=== PATIENT | female | born 1950 | race African-American/Black ===

== ENCOUNTER → 2016-09-30 | Outpatient (CLI) | payer BC ==
[2015-05-21 15:10] VITALS: BP 147/82
[~2016-09-30] MED LIST: ALLO300T PO; ATEN25TA PO; ATEN50TA PO; CHOL2000 PO; LOSA1TAB16 PO; LOSA25TA4 PO; MELO-150 PO; MULT1TAB52 PO; TRAM50TA PO
--- NOTE | 2016-10-01 09:10 | KCIC ---
Bilateral digital screening mammograms with CAD: HISTORY COMPARISON Comparison is made to previous studies dated 09/21/2015 and 09/16/2014. FINDINGS Breast density category B. The skin and nipples show no abnormalities. No abnormal lymph nodes are seen in the axilla. The breast parenchyma shows scattered fibroglandular density. There is a small parenchymal density anterior centrally in the right breast on oblique view which is unchanged. There are no new dominant masses, suspicious calcifications or architectural distortions. Benign appearing calcifications are present IMPRESSION No evidence of malignancy. Recommend routine annual mammographic screening. This study was interpreted with the benefit of Computerized Aided Detection (CAD). Mammography is not 100% sensitive in detecting breast cancer. Therefore, a self breast exam and a clinical breast exam are very important. A negative mammogram does not negate a clinically suspicious finding and should not result in a delay in biopsying a clinically suspicious abnormality. BI-RADS category 2. Benign. This patient's information has been entered into a reminder system for the patient to be notified with the results of this examination and a target date for her next mammograms. Electronically signed by: Chen Camp MD (Oct 01, 2016 09:08:17)
== END | disposition home or self-care (01) ==
LOC: KCIC MAMMO 16:34
PROVIDERS: ATTEND Internal Medicine
DX: Z12.31 Encounter for screening mammogram for malignant neoplasm of breast (principal)
CPT/HCPCS: G0202; 77067

== ENCOUNTER 2016-12-29 14:18 | Inpatient (IN) | payer BC ==
[~2016-12-29] VITALS: Ht 165.1 cm; Wt 89.9 kg
[~2016-12-29 14:18] MED LIST changes: -MELO-150 PO; +MELO15TA23 PO
[2016-12-29] MEDS ORDERED: fentaNYL PF VIAL 100 MCG/2 ML VIAL IV PRN (14:45)
[2016-12-29] MEDS ORDERED: ASPIRIN 325 MG TABLET PO ONE (14:45)
[2016-12-29] MEDS ORDERED: NITROGLYCERIN SUBLINGUAL 0.4 MG BOTTLE OF 25. SL PRN ×2 (14:45→17:45)
[2016-12-29 14:52] LABS: BASO % 1 % (0-3); EOS % 9 % (0-3); HEMATOCRIT 35.5 % (36.0-47.0); HEMOGLOBIN 12.1 g/dL (12.0-15.5); LYMPH # 1.5 x10^3/uL (1.0-4.8); LYMPH % 31 % (24-48); MEAN CORPUSCULAR HEMOGLOBIN 29 pg (25-35); MEAN CORPUSCULAR HGB CONC 34 g/dL (31-37); MEAN CORPUSCULAR VOLUME 84 fL (79-100); MONO % 6 % (0-9); NEUT % 54 % (31-73); PLATELET COUNT 339 x10^3/uL (140-400); RED BLOOD COUNT 4.23 x10^6/uL (3.50-5.40); RED CELL DISTRIBUTION WIDTH 13.8 % (11.5-14.5); WHITE BLOOD COUNT 4.7 x10^3/uL (4.0-11.0)
--- NOTE | 2016-12-29 14:58 | EKG ---
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
[2016-12-29 15:00] LABS: CALCIUM 8.8 mg/dL (8.5-10.1); GFR 66.7; POTASSIUM 3.7 mmol/L (3.5-5.1)
--- NOTE | 2016-12-29 15:03 | RAD ---
Indication chest pain. A single view of the chest was obtained. Comparison is made to an examination 05/21/2015. There is unchanged mild cardiomegaly. There is no congestive heart failure. A focal infiltrate is not seen. Significant pleural fluid is not present. There is no pneumothorax. Overall a significant change in the appearance of the chest is not seen. IMPRESSION: No acute or focal process. No significant change
[2016-12-29 15:05] LABS: ALBUMIN 3.8 g/dL (3.4-5.0); DIRECT BILIRUBIN 0.1 mg/dL (0.0-0.2); TOTAL BILIRUBIN 0.3 mg/dL (0.2-1.0); TOTAL PROTEIN 7.3 g/dL (6.4-8.2)
--- NOTE | 2016-12-29 16:20 | ED.ADGEN ---
Past Medical History Past Medical History: Arthritis, Hypertension Additional Past Medical Histor: GOUT, SPINAL STENOSIS, CHRONIC BACK PAIN, ENLARGED HEART Past Surgical History: Cholecystectomy, Hysterectomy Additional Past Surgical Histo: BACK SURGERY, BREAST BIOPSY, Alcohol Use: None Drug Use: None Adult General Chief Complaint Chief Complaint: CHEST PAIN HPI HPI Patient is a 66 year old woman, history of hypertension, "enlarged heart", arthritis, gout, who presents to the emergency department with a three-day history of chest pain. Patient states the pain is sharp and pressure-like, located in the anterior portion of her chest was tender to palpation, and radiating through to her back. She states that the pain is worse with motion, denies any nausea or vomiting, any other radiation of the pain, any weakness, numbness, tingling, headache, fevers or chills, no swelling of the extremities. States that she will sometimes have numbness in her arm as well, states she's had this issue previously, and was told that it was due to her cervical radiculopathy. Denies any recent travel or surgery, history of DVT or PE in herself or family members, denies any family history of cardiac disease and she is aware of. Patient is a previously received a stress test or catheterization. States pain is currently a 7 out of 10, located in the anterior portion of her chest as stated, with mild shortness of breath. Patient states she came to the ED today because of the persistence of symptoms, the development of shortness of breath. Review of Systems Review of Systems Constitutional: Denies fever or chills. [] Eyes: Denies change in visual acuity. [] HENT: Denies nasal congestion or sore throat. [] Respiratory: Denies cough or shortness of breath. [] Cardiovascular: Denies chest pain or edema. [] GI: Denies abdominal pain, nausea, vomiting, bloody stools or diarrhea. [] : Denies dysuria. [] Musculoskeletal: Denies back pain or joint pain. [] Integument: Denies rash. [] Neurologic: Denies headache, focal weakness or sensory changes. [] Endocrine: Denies polyuria or polydipsia. [] Lymphatic: Denies swollen glands. [] Psychiatric: Denies depression or anxiety. [] Current Medications Current Medications Current Medications Medications (Trade) Dose Ordered Sig/Leah Start Time Stop Time Status Last Admin Dose Admin Aspirin (S[facility] [employer] Aspirin) 325 mg 1X ONCE 12/29/16 14:45 12/29/16 14:47 DC 12/29/16 16:45 325 MG Fentanyl Citrate (Fentanyl 2ml Vial) 25 mcg PRN Q15MIN PRN 12/29/16 14:45 12/30/16 14:44 12/29/16 16:44 25 MCG Iohexol (Omnipaque 300 Mg/ml) 75 ml 1X ONCE 12/29/16 17:00 12/29/16 17:01 DC 12/29/16 18:30 75 ML Nitroglycerin (Nitrostat) 0.4 mg PRN Q5MIN PRN 12/29/16 14:45 12/29/16 17:51 DC 12/29/16 16:45 0.4 MG Allergies Allergies Allergies Coded Allergies Type Severity Reaction Last Updated Verified Sulfa (Sulfonamide Antibiotics) Allergy Intermediate HIVES 10/10/14 Yes codeine Allergy Intermediate HIVES 10/10/14 Yes Physical Exam Physical Exam Constitutional: Well developed, well nourished, no acute distress, non-toxic appearance. [] HENT: Normocephalic, atraumatic, bilateral external ears normal, oropharynx moist, no oral exudates, nose normal. [] Eyes: PERRLA, EOMI, conjunctiva normal, no discharge. [] Neck: Normal range of motion, no tenderness, supple, no stridor. [] Cardiovascular:Heart rate regular rhythm, no murmur, S1, S2, no rubs or gallops. Patient with chest tenderness in the anterior portion of her chest, but does not reproduce symptoms. [] Lungs & Thorax: Bilateral breath sounds clear to auscultation, no wheezing, rhonchi, rales. No chest wall crepitus. Patient with tenderness as stated. [] Abdomen: Bowel sounds normal, soft, no tenderness, no masses, no pulsatile masses. [] Skin: Warm, dry, no erythema, no rash. [] Back: No midline or paraspinal tenderness, unable to reproduce symptoms with palpation no CVA tenderness. [] Extremities: No tenderness, no cyanosis, no clubbing, ROM intact, no edema, equal pulses in all extremities. [] Neurologic: Alert and oriented X 3, normal motor function, normal sensory function, no focal deficits noted. [] Psychologic: Affect normal, judgement normal, mood normal. [] Current Patient Data Vital Signs Vital Signs Date Time Temp Pulse Resp B/P (MAP) Pulse Ox O2 Delivery O2 Flow Rate FiO2 12/29/16 17:25 58 19 152/75 (100) 98 Room Air 12/29/16 14:20 97.8 97.8 Lab Values Laboratory Tests Test 12/29/16 14:40 White Blood Count 4.7 x10^3/uL (4.0-11.0) Red Blood Count 4.23 x10^6/uL (3.50-5.40) Hemoglobin 12.1 g/dL (12.0-15.5) Hematocrit 35.5 % (36.0-47.0) L Mean Corpuscular Volume 84 fL (79-100) Mean Corpuscular Hemoglobin 29 pg (25-35) Mean Corpuscular Hemoglobin Concent 34 g/dL (31-37) Red Cell Distribution Width 13.8 % (11.5-14.5) Platelet Count 339 x10^3/uL (140-400) Neutrophils (%) (Auto) 54 % (31-73) Lymphocytes (%) (Auto) 31 % (24-48) Monocytes (%) (Auto) 6 % (0-9) Eosinophils (%) (Auto) 9 % (0-3) H Basophils (%) (Auto) 1 % (0-3) Neutrophils # (Auto) 2.5 x10^3uL (1.8-7.7) Lymphocytes # (Auto) 1.5 x10^3/uL (1.0-4.8) Monocytes # (Auto) 0.3 x10^3/uL (0.0-1.1) Eosinophils # (Auto) 0.4 x10^3/uL (0.0-0.7) Basophils # (Auto) 0.0 x10^3/uL (0.0-0.2) D-Dimer (Radha) 0.47 ug/mlFEU (0.00-0.50) Sodium Level 144 mmol/L (136-145) Potassium Level 3.7 mmol/L (3.5-5.1) Chloride Level 107 mmol/L (98-107) Carbon Dioxide Level 27 mmol/L (21-32) Anion Gap 10 (6-14) Blood Urea Nitrogen 14 mg/dL (7-20) Creatinine 1.0 mg/dL (0.6-1.0) Estimated GFR (Cockcroft-Gault) 66.7 Glucose Level 128 mg/dL (70-99) H Calcium Level 8.8 mg/dL (8.5-10.1) Total Bilirubin 0.3 mg/dL (0.2-1.0) Direct Bilirubin 0.1 mg/dL (0.0-0.2) Aspartate Amino Transferase (AST) 30 U/L (15-37) Alanine Aminotransferase (ALT) 36 U/L (14-59) Alkaline Phosphatase 54 U/L (46-116) Troponin I Quantitative < 0.017 ng/mL (0.000-0.055) CI-Lef-T-Type Natriuretic Peptide 26 pg/mL (0-124) Total Protein 7.3 g/dL (6.4-8.2) Albumin 3.8 g/dL (3.4-5.0) Laboratory Tests 12/29/16 14:40 Laboratory Tests 12/29/16 14:40 EKG EKG EC: Sinus rhythm, heart rate 78 beats minute, left axis deviation, QTC of 467, NH 14, QRS of 86, mild baseline artifact noted, no ST elevations or depressions, aside from left axis deviation, no other abnormalities identified. Abnormal ECG. As interpreted by me. Radiology/Procedures Radiology/Procedures PROCEDURE: CT CHEST W/CONTRAST CT chest with contrast History:Chest pain radiating to the back for 3 days.. Technique: After bolus of intravenous contrast, CT imaging was performed of the chest. Multiplanar reconstructions were obtained. Exposure: One or more of the following individualized dose reduction techniques were utilized for this examination: 1. Automated exposure control 2. Adjustment of the mA and/or kV according to patient size 3. Use of iterative reconstruction technique. Findings: Thoracic aorta: No evidence of an aneurysm or dissection. Great vessel origins:Patent Pulmonary arteries:Limited visualization due to technique, but no obvious large central embolism. Thyroid gland: No definite abnormality Lymph nodes:No significant enlargement Heart: No significant pericadial effusion. Pleural spaces: No significant effusion Lungs: No dominant airspace consolidation or large mass. Trachea and central airways: Patent Bones: Degenerative spondylosis. Upper abdomen: Limited slices were obtained through the upper abdomen. Multiple low-density lesions identified of both kidneys, the larger of which measure water density, compatible with cysts. Mild pancreatic duct dilatation. Impression: No evidence of acute abnormality in the chest. Electronically signed by: Dominic Simpson MD (12/29/2016 6:43 PM) [facility] DICTATED and SIGNED BY: DOMINIC SIMPSON MD DATE: 12/29/16 1062 [][facility] [address] [place] [address] IMAGING REPORT Signed PATIENT: JACQUES CHURCH ACCOUNT: [id number] : 1950 LOCATION: ER AGE: 66 SEX: F EXAM STATUS: PRE ER ORD. PHYSICIAN: KAROLINE MELENDEZ DO REASON: CP PROCEDURE: PORTABLE CHEST 1V Indication chest pain. A single view of the chest was obtained. Comparison is made to an examination 05/21/2015. There is unchanged mild cardiomegaly. There is no congestive heart failure. A focal infiltrate is not seen. Significant pleural fluid is not present. There is no pneumothorax. Overall a significant change in the appearance of the chest is not seen. IMPRESSION: No acute or focal process. No significant change DICTATED and SIGNED BY: RANI NELSON MD DATE: 12/29/16 1458 CC: KAROLINE MELENDEZ DO; JENNY MAYS MD ~ Course & Med Decision Making Course & Med Decision Making Pertinent Labs and Imaging studies reviewed. (See chart for details) Patient is agreeable to receiving laboratory studies, and imaging in the ED. Patient ordered fentanyl and nitroglycerin along with aspirin. Patient's pain improved with a menstruation medication. Laboratory studies did not reveal any acutely concerning findings, initial troponin was negative. Chest x-ray was unremarkable. However, based on the length of the patient's symptoms, and the radiation of pain, concern for possible occult abnormality of the great vessels. I did discuss this with patient, she is agreeable to receiving CT angiogram of the chest to further elucidation of her symptoms. Patient waiting to receive CT at time of sign out to Dr. Juanita Og. --- Assumed care of the patient from Dr. Melendez. She remained in stable condition. Unfortunately RN unable to obtain adequate IV access for CTA chest. She has intact bilateral radial pulses. She remains well-appearing after evaluation here. Discussed with computer engineering technician and will obtain CT of the chest with contrast although not angiogram. This showed no acute abnormality. Admittedly limited for evaluation for aortic dissection, so I discussed with the patient. She is agreeable to admission for further cardiac workup including possible advanced imaging. Dr. Mays agrees to accept for admission inpatient status with cardiology consult to Dr. Osorio & serial cardiac enzymes. The patient is being admitted in stable condition. Juanita Ferguson MD Dragon Disclaimer Dragon Disclaimer This electronic medical record was generated, in whole or in part, using a voice recognition dictation system. Departure Disposition: ADMITTED INPATIENT Admitting Physician: Jenny Mays Condition: STABLE KAROLINE MELENDEZ DO Dec 29, 2016 16:20 JUANITA FERGUSON MD Dec 30, 2016 00:23
[2016-12-29] MEDS ORDERED: IOHEXOL 300 MG/ML 75 ML VIAL IV ONE (17:00)
[2016-12-29] MEDS ORDERED: ONDANSETRON PF 4 MG/2 ML VIAL. IV PRN (17:45)
[2016-12-29] MEDS ORDERED: MORPHINE SULFATE 4 MG/ML DISP.SYRIN. IV PRN (17:45)
[2016-12-29] MEDS ORDERED: ACETAMINOPHEN 325 MG TABLET. PO PRN (17:45)
--- NOTE | 2016-12-29 18:46 | RAD ---
CT chest with contrast History:Chest pain radiating to the back for 3 days.. Technique: After bolus of intravenous contrast, CT imaging was performed of the chest. Multiplanar reconstructions were obtained. Exposure: One or more of the following individualized dose reduction techniques were utilized for this examination: 1. Automated exposure control 2. Adjustment of the mA and/or kV according to patient size 3. Use of iterative reconstruction technique. Findings: Thoracic aorta: No evidence of an aneurysm or dissection. Great vessel origins:Patent Pulmonary arteries:Limited visualization due to technique, but no obvious large central embolism. Thyroid gland: No definite abnormality Lymph nodes:No significant enlargement Heart: No significant pericadial effusion. Pleural spaces: No significant effusion Lungs: No dominant airspace consolidation or large mass. Trachea and central airways: Patent Bones: Degenerative spondylosis. Upper abdomen: Limited slices were obtained through the upper abdomen. Multiple low-density lesions identified of both kidneys, the larger of which measure water density, compatible with cysts. Mild pancreatic duct dilatation. Impression: No evidence of acute abnormality in the chest. Electronically signed by: Dominic Simpson MD (12/29/2016 6:43 PM) [place] [id number]
[2016-12-29 21:20] VITALS: BP 142/84
[2016-12-29] MEDS ORDERED: METO100T5 PO (21:40)
[2016-12-29] MEDS ORDERED: ASPI-482 PO (21:40)
[2016-12-29] MEDS ORDERED: LOSA25TA4 PO (21:40)
[2016-12-29 23:40] VITALS: BP 157/64
--- NOTE | 2016-12-30 01:34 | ACF ---
Admission Forms Criteria CARDIOLOGY GRG Clinical Indications for Admission to Inpatient Care ( Place 'X' for any and all applicable criteria): Hospital admission is needed for appropriate care of the patient because of ANY ONE of the following (1): [ ] I. Hemodynamic instability as indicated by ALL of the following (1)(2)(3) (4)(5) [ ]a) Vital signs or other findings not as expected for chronic patient condition or baseline [ ]b) Instability indicated by ANY ONE of the following: [ ]i) Hypotension [ ]ii) Symptomatic Tachycardia unresponsive to treatment ( e.g., analgesia, fluids, sedation as indicated) [ ]iii) Inadequate perfusion indicated by ANY ONE of the following: [ ] 1) Lactic acidosis (> 2 mmol/L) [ ] 2) New abnormal capillary refill (> 3 seconds) [ ] 3) Reduced urine output [ ] 4) New altered mental status [ ]iv) Orthostatic vital sign changes unresponsive to treatment (e.g., fluids) [ ]v) IV inotropic or vasopressor medication required to maintain adequate blood pressure or perfusion [ ] II. Severe heart failure as indicated by ANY ONE of the following(17)(18) [ ]a) Respiratory distress [ ]b) Hypotension [ ]c) Anasarca (refractory to outpatient therapy) [ ]d) Cardiac arrhythmias of immediate concern [ ]e) Myocardial ischemia [ ] III. Cardiac arrhythmias or findings of immediate concern indicated by ANY ONE of the following (19)(20): [ ] a) Heart rhythms that are inherently dangerous or unstable indicated by ANY ONE of the following (21)(22)(23): [ ] i) Resuscitated ventricular fibrillation or cardiac arrest [ ] ii) Ventricular escape rhythm [ ] iii) Sustained ventricular tachycardia (30 seconds or more of ventricular rhythm at greater than 100 beats per minute) [ ] iv) Nonsustained ventricular tachycardia and ANY ONE of the following: [ ] 1) Suspected cardiac ischemia as cause or consequence of ventricular tachycardia [ ] 2) In setting of acute myocarditis [ ] b) Unstable cardiac conduction defects indicated by ANY ONE of the following(23)(24)(25) [ ] i) Type II second-degree atrioventricular block [ ]ii) Third-degree atrioventricular block [ ]iii) New-onset left bundle branch block with suspected myocardial ischemia [ ]c) Any heart rhythm and ANY ONE of the following (21)(22)(26)(27) (28) [ ] i) Continuous long-term ECG monitoring needed (e.g., initiation of drug requiring monitoring for more than 24 hours) [ ] ii) Patient has automatic implanted cardioverter defibrillator that is repeatedly firing, malfunctioning, or in need of immediate adjustment of settings beyond the scope of ambulatory or observation care [ ]d) Heart rhythms of concern due to ANY ONE of the following: [ ] i) Hypotension [ ] ii) Respiratory distress [ ] iii) Association with other significant symptoms (e.g., bradycardia with syncope or ongoing dizziness, supraventricular tachycardia with chest pain (14)(15)(17) [ ] IV. Monitoring for cardiac contusion beyond the scope of observation care needed [A](30)(31)(32) [ ] V. Surgical or device complication (e.g., valve replacement complication , pacemaker dysfunction) (35)(41)(44)(45)(46) [ ] . Inpatient palliative care needed. [B](49) Also use Inpatient Palliative Care Criteria [ ] VII. Nonbacterial thrombotic (marantic) endocarditis (36)(43)(47)(48) [ X] VIII. Cardiology condition, symptom, or finding for which emergency and observation care has failed or are not considered appropriate. [ ] IX. Acute valvular disease requiring inpatient as indicated by ANY ONE of the following (41) [ ]a) Acute valvular regurgitation (42) [ ]b) Noninfectious valvulitis (43) [ ]c) Obstructive valve thrombosis [ ]d) Paravalvular leak [ ]e) Other significant valvular disorder remaining after emergency or observation level of care (as appropriate) [ ]X. Pericardial disease requiring inpatient treatment as indicated by ANY ONE of the following (33)(34)(35)(36)(37) [ ]a) Suspected tamponade (38)(39)(40) [ ]b) Hemopericardium [ ]c) Other significant pericardial disorder remaining after emergency or observation level of care (as appropriate) [ ] XI. Cardiac ischemia beyond scope of emergency and observation care. [ ] XII. Hypertension requiring inpatient treatment as indicated by ANY ONE of the following (6)(7)(8) [ ]a) SBP greater than 220 mm Hg or DBP greater than 120 mmHg despite treatment [ ]b) SBP greater than 140 mm Hg or DBP greater than 100 mm Hg with evidence of acute end organ damage as indicated by ANY ONE of the following [ ] i) Encephalopathy [ ] ii) Acute renal failure as indicated by new onset of ANY ONE of the following (9)(10)(11)(12)(13) [ ]1) 3-fold rise in serum creatinine from baseline [ ]2) Serum creatinine greater than 4 mg/dL ( 354 micromoles/L) with acute rise greater than 0.5 mg/dL (44.2 micromoles/L) [ ]3) Reduction of more than 75% in estimated glomerular filtration rate from baseline [ ]4) Estimated glomerular filtration rate less than 35 mL/min/1.73m2 (0.59 mL/sec/1.73m2) in child up to 18 years of age [ ]5) Cessation of urine output indicated by ALL of the following [ ]A. Adequate volume status [ ]B. Inadequate urine output as indicated by ANY ONE of the following [ ]a. Urine output less than 0.3 mL/kg/hr for 24 hours [ ]b. Anuria (urine output less than 0.1 mL/kg/hr) for 12 hours [ ] iii) Aortic dissection [ ] iv) Myocardial Ischemia [ ] v) Left ventricular heart failure [ ]vi) Retinal Hemorrhage [ ]vii) Other significant finding [ ]c) Hypertension in child requiring inpatient treatment as indicated by ALL of the following(14)(15)(16) [ ] i) Outpatient treatment not effective, not available, or not appropriate [ ]ii) SBP or DBP greater than 95th percentile for age [ ]iii) Evidence of acute end organ damage as indicated by ANY ONE of the following [ ]1) Altered mental status [ ]2) Acute renal failure as indicated by new onset of ANY ONE of the following(9)(10)(11)(12)(13) [ ]A. 3-fold rise in serum creatinine from baseline [ ]B. Serum creatinine greater than 4 mg/dL (354 micromoles/L) with acute rise greater than 0.5 mg/dL (44.2 micromoles/L) [ ]C. Reduction of more than 75% in estimated glomerular filtration rate from baseline [ ]D. Estimated glomerular filtration rate less than 35 mL/min/1.73m2 (0.59 mL/sec/1.73m2) in child up to 18 years of age [ ]E. Cessation of urine output indicated by ALL of the following [ ]a. Adequate volume status [ ]b. Inadequate urine output as indicated by ANY ONE of the following [ ]i) Urine output less than 0.3 mL/kg/hr for 24 hours [ ]ii) Anuria ( urine output less than 0.1 mL/kg/hr) for 12 hours [ ]3) Severe headache [ ]4) Visual disturbance [ ]5) Retinal hemorrhage [ ]6) Other significant finding [ ]XIII. Complications of transplanted heart indicated by ANY ONE of the following(61): [ ]a) Acute graft rejection requiring inpatient management (eg, intravenous immunosuppression)(62)(63) [ ]b) Acute graft heart failure indicated by ANY ONE of the following(64): [ ]i) Hemodynamic instability [ ]ii) Cardiac arrhythmias of immediate concern [ ]iii) Pulmonary edema that is very severe (eg, mechanical ventilation needed, imminent or likely, need for 100% oxygen to keep oxygen saturation above 90%) [ ]iv) Pulmonary edema that is persistent as indicated by ALL of the following: [ ]1) New need for oxygen therapy to keep oxygen saturation above 90% (or increased FiO2 need from baseline) [ ]2) Has not improved sufficiently with emergency department or observation care IV diuretics or other heart failure treatments[E] [ ]v) Altered mental status that is severe or persistent [ ]vi) Increased creatinine (new on laboratory test) with reduction of more than 50% in estimated glomerular filtration rate from baseline [ ]vii) Progressively (ongoing) rising creatinine (known from past laboratory test) with reduction of more than 25% in estimated glomerular filtration rate from baseline [ ]viii) Acute renal failure [ ]ix) Acute peripheral ischemia (eg, examination shows pulseless, cool, mottled, or cyanotic extremity) [ ]x) Pulmonary artery catheter monitoring needed [ ]xi) Other sign or symptom of heart failure requiring inpatient treatment (ie, too severe or not responsive to outpatient and observation care treatment) [ ]c) Infection requiring inpatient management (eg, Hemodynamic instability, need for intravenous antimicrobial treatment)(66)(67)(68)(69)(70) [ ]d) Cardiac allograft vasculopathy requiring inpatient management ( eg evidence of cardiac ischemia)(71) [ ]e) Other complication of transplanted heart (eg, stroke, severe pulmonary hypertension, severe valvular dysfunction) requiring inpatient management(72) The original [facility] content created by [facility] has been revised. The portions of the content which have been revised are identified through the use of italic text or in bold, and [facility] has neither reviewed nor approved the modified material. All other unmodified content is copyright [facility]. Please see references footnoted in the original [facility] edition 2016 Admission Criteria Met?: Yes BRIDGETT GARCIA Dec 30, 2016 01:34
[2016-12-30 03:56] VITALS: BP 143/60
[2016-12-30 05:55] LABS: CHOLESTEROL/HDL RATIO 2.6
[2016-12-30 07:00] VITALS: BP_SYST 123; BP_DIAS 56; BP_DIAS 72
--- NOTE | 2016-12-30 07:38 | EKG ---
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
[2016-12-30 08:15] VITALS: BP 123/72
[2016-12-30] MEDS ORDERED: traMADol 50 MG TABLET PO PRN (09:15)
--- NOTE | 2016-12-30 09:21 | PDOC1 ---
History and Physical Date of Admission Date of Admission DATE: 12/30/16 TIME: 09:20 History of Present Illness History of Present Illness 4 days nonspecific CP. no new sxs or hx of cad Past Medical History Cardiovascular: HTN Pulmonary: No pertinent hx CENTRAL NERVOUS SYSTEM: Other GI: GERD, Other Heme/Onc: No pertinent hx Hepatobiliary: No pertinent hx Psych: No pertinent hx Musculoskeletal: Osteoarthritis Rheumatologic: Gout Infectious disease: No pertinent hx Renal/: No pertinent hx Endocrine: No pertinent hx Past Surgical History Past Surgical History: Cholecystectomy, Other Social History ALCOHOL: none Drugs: None Current Problem List Problem List Problems Medical Problems: (1) Chest pain Status: Acute Problems: Current Medications Current Medications Current Medications Nitroglycerin (Nitrostat) 0.4 mg PRN Q5MIN PRN SL CP RATING > 1/10 Last administered on 12/29/16 16:45; Start 12/29/16 at 14:45; Stop 12/29/16 at 17:51 ; Status DC Fentanyl Citrate (Fentanyl 2ml Vial) 25 mcg PRN Q15MIN PRN IV PAIN GREATER THAN 3/10 Last administered on 12/29/16 16:44; Start 12/29/16 at 14:45; Stop at 14:44 Aspirin (Victorina Aspirin) 325 mg 1X ONCE PO Last administered on 12/29/16 16:45 ; Start 12/29/16 at 14:45; Stop 12/29/16 at 14:47; Status DC Iohexol (Omnipaque 300 Mg/ml) 75 ml 1X ONCE IV Last administered on 12/29/16 18:30; Start 12/29/16 at 17:00; Stop 12/29/16 at 17:01; Status DC Ondansetron HCl (Zofran) 4 mg PRN Q8HRS PRN IV NAUSEA/VOMITING; Start 12/29/16 at 17:45; Stop 12/30/16 at 17:44 Morphine Sulfate 4 mg PRN Q2HR PRN IV PAIN Last administered on 12/29/16 21:56 ; Start 12/29/16 at 17:45; Stop 12/30/16 at 17:44 Acetaminophen (Tylenol) 650 mg PRN Q4HRS PRN PO FEVER; Start 12/29/16 at 17:45 ; Stop 12/30/16 at 17:44 Nitroglycerin (Nitrostat) 0.4 mg PRN Q5MIN PRN SL CHEST PAIN; Start 12/29/16 at 17:45; Stop 12/30/16 at 17:44 Aspirin (Ecotrin) 81 mg DAILY PO ; Start 12/30/16 at 09:30 Losartan Potassium (Cozaar) 12.5 mg HS PO ; Start 12/30/16 at 21:00 Metoprolol Succinate (Toprol Xl) 100 mg HS PO ; Start 12/30/16 at 21:00 Tramadol HCl (Ultram) 50 mg PRN Q6HRS PRN PO PAIN; Start 12/30/16 at 09:15 Active Scripts Active Reported Losartan Potassium 25 Mg Tablet 12.5 Mg PO HS Toprol Xl (Metoprolol Succinate) 100 Mg Tab.er.24h 1 Tab PO HS Aspir 81 (Aspirin) 81 Mg Tablet.dr 1 Tab PO DAILY Tramadol Hcl 50 Mg Tablet 1 Tab PO PRN Q6HRS PRN Multivitamins (Multivitamin) 1 Each Tablet 1 Tab PO DAILY Vitamin D (Cholecalciferol (Vitamin D3)) 2,000 Unit Capsule 1 Cap PO DAILY Allergies Allergies: Coded Allergies: Sulfa (Sulfonamide Antibiotics) (Verified Allergy, Intermediate, HIVES, 10/10/14) codeine (Verified Allergy, Intermediate, HIVES, 10/10/14) Vitals Vitals Vital Signs Date Time Temp Pulse Resp B/P (MAP) Pulse Ox O2 Delivery O2 Flow Rate FiO2 12/30/16 08:15 98.2 60 16 123/72 (89) 98 Room Air 98.2 Labs Labs Laboratory Tests Test 12/29/16 14:40 12/29/16 23:40 12/30/16 04:45 White Blood Count 4.7 x10^3/uL (4.0-11.0) Red Blood Count 4.23 x10^6/uL (3.50-5.40) Hemoglobin 12.1 g/dL (12.0-15.5) Hematocrit 35.5 % (36.0-47.0) Mean Corpuscular Volume 84 fL (79-100) Mean Corpuscular Hemoglobin 29 pg (25-35) Mean Corpuscular Hemoglobin Concent 34 g/dL (31-37) Red Cell Distribution Width 13.8 % (11.5-14.5) Platelet Count 339 x10^3/uL (140-400) Neutrophils (%) (Auto) 54 % (31-73) Lymphocytes (%) (Auto) 31 % (24-48) Monocytes (%) (Auto) 6 % (0-9) Eosinophils (%) (Auto) 9 % (0-3) Basophils (%) (Auto) 1 % (0-3) Neutrophils # (Auto) 2.5 x10^3uL (1.8-7.7) Lymphocytes # (Auto) 1.5 x10^3/uL (1.0-4.8) Monocytes # (Auto) 0.3 x10^3/uL (0.0-1.1) Eosinophils # (Auto) 0.4 x10^3/uL (0.0-0.7) Basophils # (Auto) 0.0 x10^3/uL (0.0-0.2) D-Dimer (Radha) 0.47 ug/mlFEU (0.00-0.50) Sodium Level 144 mmol/L (136-145) Potassium Level 3.7 mmol/L (3.5-5.1) Chloride Level 107 mmol/L (98-107) Carbon Dioxide Level 27 mmol/L (21-32) Anion Gap 10 (6-14) Blood Urea Nitrogen 14 mg/dL (7-20) Creatinine 1.0 mg/dL (0.6-1.0) Estimated GFR (Cockcroft-Gault) 66.7 Glucose Level 128 mg/dL (70-99) Calcium Level 8.8 mg/dL (8.5-10.1) Total Bilirubin 0.3 mg/dL (0.2-1.0) Direct Bilirubin 0.1 mg/dL (0.0-0.2) Aspartate Amino Transf (AST/SGOT) 30 U/L (15-37) Alanine Aminotransferase (ALT/SGPT) 36 U/L (14-59) Alkaline Phosphatase 54 U/L (46-116) Troponin I Quantitative < 0.017 ng/mL (0.000-0.055) < 0.017 ng/mL (0.000-0.055) < 0.017 ng/mL (0.000-0.055) YQ-Vbp-W-Type Natriuretic Peptide 26 pg/mL (0-124) Total Protein 7.3 g/dL (6.4-8.2) Albumin 3.8 g/dL (3.4-5.0) Triglycerides Level 108 mg/dL (0-150) Cholesterol Level 175 mg/dL (0-200) LDL Cholesterol, Calculated 86 mg/dL (0-100) VLDL Cholesterol, Calculated 22 mg/dL (0-40) Non-HDL Cholesterol Calculated 108 mg/dL (0-129) HDL Cholesterol 67 mg/dL (40-60) Cholesterol/HDL Ratio 2.6 Laboratory Tests Test 12/29/16 14:40 12/29/16 23:40 12/30/16 04:45 White Blood Count 4.7 x10^3/uL (4.0-11.0) Red Blood Count 4.23 x10^6/uL (3.50-5.40) Hemoglobin 12.1 g/dL (12.0-15.5) Hematocrit 35.5 % (36.0-47.0) Mean Corpuscular Volume 84 fL (79-100) Mean Corpuscular Hemoglobin 29 pg (25-35) Mean Corpuscular Hemoglobin Concent 34 g/dL (31-37) Red Cell Distribution Width 13.8 % (11.5-14.5) Platelet Count 339 x10^3/uL (140-400) Neutrophils (%) (Auto) 54 % (31-73) Lymphocytes (%) (Auto) 31 % (24-48) Monocytes (%) (Auto) 6 % (0-9) Eosinophils (%) (Auto) 9 % (0-3) Basophils (%) (Auto) 1 % (0-3) Neutrophils # (Auto) 2.5 x10^3uL (1.8-7.7) Lymphocytes # (Auto) 1.5 x10^3/uL (1.0-4.8) Monocytes # (Auto) 0.3 x10^3/uL (0.0-1.1) Eosinophils # (Auto) 0.4 x10^3/uL (0.0-0.7) Basophils # (Auto) 0.0 x10^3/uL (0.0-0.2) D-Dimer (Radha) 0.47 ug/mlFEU (0.00-0.50) Sodium Level 144 mmol/L (136-145) Potassium Level 3.7 mmol/L (3.5-5.1) Chloride Level 107 mmol/L (98-107) Carbon Dioxide Level 27 mmol/L (21-32) Anion Gap 10 (6-14) Blood Urea Nitrogen 14 mg/dL (7-20) Creatinine 1.0 mg/dL (0.6-1.0) Estimated GFR (Cockcroft-Gault) 66.7 Glucose Level 128 mg/dL (70-99) Calcium Level 8.8 mg/dL (8.5-10.1) Total Bilirubin 0.3 mg/dL (0.2-1.0) Direct Bilirubin 0.1 mg/dL (0.0-0.2) Aspartate Amino Transf (AST/SGOT) 30 U/L (15-37) Alanine Aminotransferase (ALT/SGPT) 36 U/L (14-59) Alkaline Phosphatase 54 U/L (46-116) Troponin I Quantitative < 0.017 ng/mL (0.000-0.055) < 0.017 ng/mL (0.000-0.055) < 0.017 ng/mL (0.000-0.055) ZX-Ypv-E-Type Natriuretic Peptide 26 pg/mL (0-124) Total Protein 7.3 g/dL (6.4-8.2) Albumin 3.8 g/dL (3.4-5.0) Triglycerides Level 108 mg/dL (0-150) Cholesterol Level 175 mg/dL (0-200) LDL Cholesterol, Calculated 86 mg/dL (0-100) VLDL Cholesterol, Calculated 22 mg/dL (0-40) Non-HDL Cholesterol Calculated 108 mg/dL (0-129) HDL Cholesterol 67 mg/dL (40-60) Cholesterol/HDL Ratio 2.6 VTE Prophylaxis Ordered VTE Prophylaxis Devices: Yes VTE Pharmacological Prophylaxi: No Assessment/Plan Assessment/Plan tender costal cartileges, likely chest wall pain, but will do chem MPI, meds ordered JESUS JAVIER MD Dec 30, 2016 09:21
[2016-12-30] MEDS ORDERED: ASPIRIN ENTERIC COATED 81 MG TABLET.DR. PO SCH (09:30)
[2016-12-30] MEDS ORDERED: REGADENOSON 0.4 MG/5 ML DISP.SYRIN. IV ONE (10:45)
--- NOTE | 2016-12-30 10:53 | PDOC2 ---
SHAKIR GOMEZ LOAN SERVICING OFFICER 12/30/16 1052: CARDIAC CONSULT DATE OF CONSULT Date of Consult DATE: 12/30/16 TIME: 10:39 REASON FOR CONSULT Reason for Consult: Chest pain REFERRING PHYSICIAN Referring Physician: Marty SOURCE Source: Chart review, Patient HISTORY OF PRESENT ILLNESS HISTORY OF PRESENT ILLNESS This is a pleasant 66 yo female admitted for complains of chest pain. Reports of left chest pain in the last 3 days radiating to mid back,. This was sharp but not associated wtih any nausea, SOA, or palpitations. Denies any significant changes to her activity tolerance. She does however has been feeling some times like her food is not going down smoothly in her esophagus and she has had esophageal stricture which required dilatation from about 10 yrs ago. She does have GERD but does not take any reflux medications. Denies any CAD, CHINO, VTE, recent injury or falls but she does have significan shoulder and neck arthritis. She has been treated with NSAIDs and was given recently with tramadol. Verbalized that she was told of steroid shot to her neck but refused to have this done. She is also sinigificant for lumbar stenosis in which she had laminectomy in the past. Presently denies any discomfort. She has HTN and verbalized compliance with her medications. She finally came to the hospital through her convincing. PAST MEDICAL HISTORY Cardiovascular: HTN Pulmonary: Other (mild pulmonary HTN) CENTRAL NERVOUS SYSTEM: Vertigo GI: Diverticulosis, GERD, Other (esophageal stricture) Heme/Onc: No pertinent hx Hepatobiliary: No pertinent hx Musculoskeletal: low back pain, Osteoarthritis Rheumatologic: No pertinent hx Infectious disease: No pertinent hx ENT: Other (cataract) Renal/: No pertinent hx Endocrine: No pertinent hx Dermatology: No pertinent hx PAST SURGICAL HISTORY Past Surgical History: Cataract Removal (OD), Hysterectomy, Other (esophageal dilatation; lumbar laminectomy; right breast biopsy) FAMILY HISTORY Family History noncontributory to CV SOCIAL HISTORY Smoke: No ALCOHOL: none Drugs: None Lives: with Family CURRENT MEDICATIONS CURRENT MEDICATIONS Current Medications Medications (Trade) Dose Ordered Sig/Leah Route PRN Reason Start Time Stop Time Status Last Admin Dose Admin Nitroglycerin (Nitrostat) 0.4 mg PRN Q5MIN PRN SL CP RATING > 1/10 12/29/16 14:45 12/29/16 17:51 DC 12/29/16 16:45 Fentanyl Citrate (Fentanyl 2ml Vial) 25 mcg PRN Q15MIN PRN IV PAIN GREATER THAN 3/10 12/29/16 14:45 12/30/16 14:44 12/29/16 16:44 Aspirin (Victorina Aspirin) 325 mg 1X ONCE PO 12/29/16 14:45 12/29/16 14:47 DC 12/29/16 16:45 Iohexol (Omnipaque 300 Mg/ml) 75 ml 1X ONCE IV 12/29/16 17:00 12/29/16 17:01 DC 12/29/16 18:30 Morphine Sulfate 4 mg PRN Q2HR PRN IV PAIN 12/29/16 17:45 12/30/16 17:44 12/29/16 21:56 ALLERGIES ALLERGIES: Coded Allergies: Sulfa (Sulfonamide Antibiotics) (Verified Allergy, Intermediate, HIVES, 10/10/14) codeine (Verified Allergy, Intermediate, HIVES, 10/10/14) ROS Review of System 14 point ROS evaluated with pertinent positives noted per HPI PHYSICAL EXAM General: Alert, Oriented X3, Cooperative, No acute distress HEENT: Atraumatic, Mucous membr. moist/pink Lungs: Clear to auscultation, Normal air movement Heart: Regular rate (SR), Normal S1, Normal S2, Other (2/6 systolic murmur to LLS border) Abdomen: Soft, No tenderness Extremities: No cyanosis, No edema Skin: No breakdown, No significant lesion Neuro: Normal speech, Sensation intact Psych/Mental Status: Mental status NL, Mood NL MUSCULOSKELETAL: Osteoarthritic changes both hands VITALS VITALS Vital Signs Date Time Temp Pulse Resp B/P (MAP) Pulse Ox O2 Delivery O2 Flow Rate FiO2 12/30/16 08:15 98.2 60 16 123/72 (89) 98 Room Air 98.2 LABS Lab: Laboratory Tests Test 12/29/16 14:40 12/29/16 23:40 12/30/16 04:45 White Blood Count 4.7 x10^3/uL (4.0-11.0) Red Blood Count 4.23 x10^6/uL (3.50-5.40) Hemoglobin 12.1 g/dL (12.0-15.5) Hematocrit 35.5 % (36.0-47.0) Mean Corpuscular Volume 84 fL (79-100) Mean Corpuscular Hemoglobin 29 pg (25-35) Mean Corpuscular Hemoglobin Concent 34 g/dL (31-37) Red Cell Distribution Width 13.8 % (11.5-14.5) Platelet Count 339 x10^3/uL (140-400) Neutrophils (%) (Auto) 54 % (31-73) Lymphocytes (%) (Auto) 31 % (24-48) Monocytes (%) (Auto) 6 % (0-9) Eosinophils (%) (Auto) 9 % (0-3) Basophils (%) (Auto) 1 % (0-3) Neutrophils # (Auto) 2.5 x10^3uL (1.8-7.7) Lymphocytes # (Auto) 1.5 x10^3/uL (1.0-4.8) Monocytes # (Auto) 0.3 x10^3/uL (0.0-1.1) Eosinophils # (Auto) 0.4 x10^3/uL (0.0-0.7) Basophils # (Auto) 0.0 x10^3/uL (0.0-0.2) D-Dimer (Radha) 0.47 ug/mlFEU (0.00-0.50) Sodium Level 144 mmol/L (136-145) Potassium Level 3.7 mmol/L (3.5-5.1) Chloride Level 107 mmol/L (98-107) Carbon Dioxide Level 27 mmol/L (21-32) Anion Gap 10 (6-14) Blood Urea Nitrogen 14 mg/dL (7-20) Creatinine 1.0 mg/dL (0.6-1.0) Estimated GFR (Cockcroft-Gault) 66.7 Glucose Level 128 mg/dL (70-99) Calcium Level 8.8 mg/dL (8.5-10.1) Total Bilirubin 0.3 mg/dL (0.2-1.0) Direct Bilirubin 0.1 mg/dL (0.0-0.2) Aspartate Amino Transf (AST/SGOT) 30 U/L (15-37) Alanine Aminotransferase (ALT/SGPT) 36 U/L (14-59) Alkaline Phosphatase 54 U/L (46-116) Troponin I Quantitative < 0.017 ng/mL (0.000-0.055) < 0.017 ng/mL (0.000-0.055) < 0.017 ng/mL (0.000-0.055) VL-Adx-S-Type Natriuretic Peptide 26 pg/mL (0-124) Total Protein 7.3 g/dL (6.4-8.2) Albumin 3.8 g/dL (3.4-5.0) Triglycerides Level 108 mg/dL (0-150) Cholesterol Level 175 mg/dL (0-200) LDL Cholesterol, Calculated 86 mg/dL (0-100) VLDL Cholesterol, Calculated 22 mg/dL (0-40) Non-HDL Cholesterol Calculated 108 mg/dL (0-129) HDL Cholesterol 67 mg/dL (40-60) Cholesterol/HDL Ratio 2.6 ASSESSMENT/PLAN ASSESSMENT/PLAN 1. Atypical CP: doubt ACS. risk factors noted. Suspect GI vs MSK 2. Hx of /GERDesophageal stricture and dilatation: about 10 yrs ago. notable for intermittent sensation of "food not going down smoothly" 3. OA: cervical and shoulder 4. HTN: controlled 5. Prolonged QTc 487: on tizanidine Recommendations 1. MPI to completely rule out ischemia 2. Will likely need outpt GI to revisit esophageal issues 3. Continue HTN regimen 4. Recommend alternative to tizanidine Problems: BRIANDA BAKER MD 12/30/162051: CARDIAC CONSULT ALLERGIES ALLERGIES: Coded Allergies: Sulfa (Sulfonamide Antibiotics) (Verified Allergy, Intermediate, HIVES, 10/10/14) codeine (Verified Allergy, Intermediate, HIVES, 10/10/14) ASSESSMENT/PLAN ASSESSMENT/PLAN pt seen and examined. agree w above non cardiac chest pain treat gerd thx for consult. Problems: SHAKIR GOMEZ APRN Dec 30, 2016 10:52 BRIANDA BAKER MD Dec 30, 2016 20:52
[2016-12-30 11:00] VITALS: BP 130/70
[2016-12-30 15:00] VITALS: BP 126/66
--- NOTE | 2016-12-30 15:39 | RAD ---
APPROVED REPORT Test Type: Pharmacological Stress Nurse/Tech: Alisha Pearce R.N. Test Indications: chest pain Cardiac History: htn Medications: see ehr Medical History: see ehr Resting ECG: sr Resting Heart Rate: 64 bpm Resting Blood Pressure: 137/79mmHg Pretest Chest Pain: Typical angina Nurse/Tech Notes lungs cta, heart tones regular, good radial pulse Consent: The procedure was explained to the patient in lay terms. Informed consent was witnessed. Romeo eout was entered into [employer]. History and Stress Test performed by Alisha Pearce R.N. Pharm. Details Pharmacologic stress testing was performed using 0.4mg per 5ml of regadenoson given intravenously ove r 7-10 seconds. Stress Symptoms chest pain. Started at 5/10 before stress, up to 7/10 during minute 2 of recovery, pain down to 2/10 post recovery POST EXERCISE Reason for Termination: Infusion complete Target HR: No Max HR: 102 bpm Max Blood Pressure: 156/82mmHg Chest Pain: Yes. see above Arrhythmia: No. ST Change: No. INTERPRETATION Stress EKG Conclusion: Baseline EKG showed sinus rhythm. No ischemic changes at peak stress. No arr hythmias. Imaging Protocol IMAGE PROTOCOL: Rest Tc-99m/stress Tc-99m 1 day Rest: Stress: Viability: Radiopharm.Tc99m [id number] Sestamibi Fdco24mBr 33mCi Duration 15min. 12min. Img Date 12/30/2016 12/30/2016 Inj-Img [id number]. 60min. Rest Admin Site:IV - Left HandAdministrator:Stiven Ibarra RT (R)(N) Stress Admin Site: IV - Left HandAdministrator: Cheryl Vickers RT (R)(N) STRESS DATA End Diast. Vol.77.0mlAv. Heart Rate69.0bpm End Syst. Vol.25.0mlCO Index BSA0.0L/min Myocardial Rhkh306.0gEject. Xsbzdmdf73.0% Stress Rates Pk. Fill Rate2.69EDV/secLVtime Pk. Fill 263.06msec Pk. Empty Rate4.14ESV/secLVtime Pk. Fysud181.90msec 06/11 Pk. Fill1.22EDV/sec Stress Scores Regional WT0.00Summed WT0.00 Regional WM0.00Summed WM3.00 Study quality was good. Left Ventricular size was Normal at Rest and Stress. Lung uptake was Normal. Left Ventricular ejection fraction is 68%. The rest and stress images show normal perfusion, normal contraction and thickening. LV Perf. Quant 17 Seg. SSS0.00 17 Seg. SRS1.00 17 Seg. SDS0.00 Stress Defect Extent (% LAD)0.00Rest Defect Extent (% LAD)0.00Rev. Defect Extent (% LAD)0.00 Stress Defect Extent (% LCX) 0.00Rest Defect Extent (% LCX)0.00Rev. Defect Extent (% LCX)0.00 Stress Defect Extent (% RCA)0.00Rest Defect Extent (% RCA)0.00Rev. Defect Extent (% RCA)0.00 Stress Defect Extent (% LILLIE)0.00Rest Defect Extent (% LILLIE)0.00Rev. Defect Extent (% LILLIE)0.00 Conclusion 1. Regadenoson cardioisotope stress test did not show any evidence of ischemia or infarct. 2. Normal left ventricular systolic function with ejection fraction calculated at 68%. 3. Low risk for cardiac events.
[2016-12-30] MEDS ORDERED: METOPROLOL SUCC 24HR ER 100 MG TAB.ER.24H. PO SCH (21:00)
[2016-12-30] MEDS ORDERED: LOSARTAN POTASSIUM 25 MG TABLET. PO SCH (21:00)
--- NOTE | 2016-12-31 18:35 | PDOC3 ---
Discharge Summary* Date of Admission: Dec 29, 2016 Date of Discharge: Dec 30, 2016 Admitting Diagnosis Problems Medical Problems: (1) Chest pain Status: Acute Problems: Final Diagnosis Problems Medical Problems: (1) Chest pain is not cardiac and possibly musculoskeletal Status: Acute CONSULTS Cardiology Procedures Chest x-ray, CT scan of the chest, MPI stress test negative Brief Hospital Course Ms. Murray is a 66 old [sex] who presented with [ ] Disposition/Orders: D/C to Home CONDITION AT DISCHARGE: Improved Diet: Cardiac Scheduled Aspirin (Aspir 81), 1 TAB PO DAILY, (Reported) Cholecalciferol (Vitamin D3) (Vitamin D), 1 CAP PO DAILY, (Reported) Losartan Potassium (Losartan Potassium), 12.5 MG PO HS, (Reported) Metoprolol Succinate (Toprol Xl), 1 TAB PO HS, (Reported) Multivitamin (Multivitamins), 1 TAB PO DAILY, (Reported) Scheduled PRN Tramadol Hcl (Tramadol Hcl), 1 TAB PO PRN Q6HRS PRN for PAIN, (Reported) Discontinued Medications Allopurinol (Allopurinol), 1 TAB PO DAILY, (Reported) Atenolol (Atenolol), 1 TAB PO DAILY, (Reported) Losartan/Hydrochlorothiazide (Losartan-Hctz 50-12.5 Mg Tab), 1 TAB PO DAILY, ( Reported) Meloxicam (Meloxicam), 1 TAB PO DAILY PRN for PAIN, (Reported) FOLLOW UP APPOINTMENT: Dr. Mays in 1 week Time Spent Total time spent with patient [] minutes for coordination of care, counseling, and education. JENNY MAYS MD Dec 31, 2016 18:35
== END 2016-12-30 16:43 | disposition home or self-care (01) | DRG 392 ==
LOC: ER 14:18 → 2 NORTH 17:32
PROVIDERS: ADMIT Internal Medicine; ATTEND Internal Medicine
DX: K21.9 Gastro-esophageal reflux disease without esophagitis (principal); R07.89 Other chest pain; I10 Essential (primary) hypertension; I27.2 Other secondary pulmonary hypertension; I45.81 Long QT syndrome; M10.9 Gout, unspecified; M54.12 Radiculopathy, cervical region; G89.29 Other chronic pain; K57.90 Diverticulosis of intestine, part unspecified, without perforation or abscess without bleeding; M19.019 Primary osteoarthritis, unspecified shoulder; M54.5 Low back pain; Z90.710 Acquired absence of both cervix and uterus; Z90.49 Acquired absence of other specified parts of digestive tract; Z88.2 Allergy status to sulfonamides; Z88.5 Allergy status to narcotic agent
CPT/HCPCS: 36415; 71010; 71260; 78452; 80048; 80061; 80076; 83880; 84484; 85027; 85379; 93005; 93017; 96374; 96375; 96376; A9500; J2270; J2785; J3010; Q9967; 99285-25; A6539

== ENCOUNTER → 2017-10-03 | Outpatient (CLI) | payer BC | END | disposition home or self-care (01) | LOC: KCIC MAMMO 13:46 | DX: Z12.31 Encounter for screening mammogram for malignant neoplasm of breast (principal) | CPT/HCPCS: 77063; 77067 ==

== ENCOUNTER → 2018-10-19 | Outpatient (CLI) | payer BC ==
[~2018-10-19] MED LIST changes: +ASPI-482 PO; -LOSA1TAB16 PO; +LOSA1TAB19 PO; -LOSA25TA4 PO; +LOSA25TA54 PO; +METO100T5 PO
--- NOTE | 2018-10-20 07:34 | KCIC ---
EXAM: Bilateral digital screening mammogram with tomosynthesis. HISTORY: 68 year-old presents for screening mammography. TECHNIQUE: Full-field digital craniocaudal and mediolateral oblique 2D and 3D tomosynthesis images of both breasts are obtained for evaluation. Computer aided detection with [employer] software version 9.3 was applied. COMPARISON: 10/03/2017 BREAST PARENCHYMAL DENSITY: Level B - Scattered fibroglandular densities. FINDINGS: There is no new suspicious mass, microcalcification or region of architectural distortion. There are stable areas of nodularity and asymmetry within both breasts. There are few benign calcifications. IMPRESSION: BI-RADS Category 2: Benign finding(s). RECOMMENDATION: Annual mammography is recommended. If your mammogram demonstrates that you have dense breast tissue, which could hide abnormalities, and if you have other risk factors for breast cancer that have been identified, you might benefit from supplemental screening tests that may be suggested by your ordering physician. Dense breast tissue, in and of itself, is a relatively common condition. This information is not provided to cause undue concern, but rather to raise your awareness and to promote discussion with your physician regarding the presence of other risk factors, in addition to dense breast tissue. A report of your mammography results will be sent to you and your physician. You should contact your physician if you have any questions or concerns regarding this report. Mammography is a sensitive method for finding small breast cancers, but it does not detect them all and is not a substitute for careful clinical examination. A negative mammogram does not negate a clinically suspicious finding and should not result in delay in biopsying a clinically suspicious abnormality. PQRS compliance statement - Patient information was entered into a reminder system with a target due date for the next mammogram. "Our facility is accredited by the [employer] Mammography Program." Electronically signed by: Cheryl Dubois MD (10/20/2018 7:31 AM) [id number]
== END | disposition home or self-care (01) ==
LOC: KCIC MAMMO 16:48
PROVIDERS: ATTEND Family Medicine
DX: Z12.31 Encounter for screening mammogram for malignant neoplasm of breast (principal); N64.89 Other specified disorders of breast
CPT/HCPCS: 77063; 77067

== ENCOUNTER 2019-01-10 14:30 | Emergency (ER) | payer BC ==
[~2019-01-10] VITALS: Ht 165.1 cm; Wt 89.8 kg
[2019-01-10 15:30] VITALS: BP 132/90
--- NOTE | 2019-01-10 15:40 | PHYS DOC ---
Past Medical History Past Medical History: Arthritis, Hypertension Additional Past Medical Histor: GOUT, SPINAL STENOSIS, CHRONIC BACK PAIN, ENLARGED HEART Past Surgical History: Cholecystectomy, Hysterectomy Additional Past Surgical Histo: BACK SURGERY, BREAST BIOPSY, Alcohol Use: None Drug Use: None Adult General Chief Complaint Chief Complaint: EARACHE/EAR PAIN [facility] HPI Patient is a 68 year old [female] who presents with [right ear pain for the past several months. Patient reports she has seen her primary care for this in the past, has had a referral to ENT but does not have an appointment for another 3 weeks. Reports she is continued to have some minor discomfort, some itching, reports minimal hearing loss from that right ear since that time. States she has not tried any medications, has not done anything different, just wanted to know what was going on with her here today. Also reports pain in her right neck. Reports she has had this for a long time, the states she has a history of prior back injuries, back surgeries, has medicines at home she has been taking this. Denies fever, denies other illness, states she was just concerned because she looked up and she will make sure there was no infection and did not know what was causing her ear to continue to her today.] Review of Systems Review of Systems Constitutional: Denies fever or chills [] Eyes: Denies change in visual acuity, redness, or eye pain [] HENT: Denies nasal congestion or sore throat states some intermittent discomfort in her right ear.[] Respiratory: Denies cough or shortness of breath [] Cardiovascular: No additional information not addressed in HPI [] GI: Denies abdominal pain, nausea, vomiting, bloody stools or diarrhea [] : Denies dysuria or hematuria [] Musculoskeletal: Denies back pain or joint pain [] Integument: Denies rash or skin lesions [] Neurologic: Denies headache, focal weakness or sensory changes, states the past several months she was had occasional dizziness, denies any dizziness at this time. [] Endocrine: Denies polyuria or polydipsia, [] All other systems were reviewed and found to be within normal limits, except as documented in this note. Allergies Allergies Allergies Coded Allergies Type Severity Reaction Last Updated Verified Sulfa (Sulfonamide Antibiotics) Allergy Intermediate HIVES 10/10/14 Yes codeine Allergy Intermediate HIVES 10/10/14 Yes Physical Exam Physical Exam Constitutional: Well developed, well nourished, no acute distress, non-toxic appearance. [] HENT: Normocephalic, atraumatic, bilateral external ears normal, oropharynx moist, no oral exudates, nose normal. [] Eyes: PERRLA, EOMI, conjunctiva normal, no discharge. pupils 2 mm, reactive [] Neck: Normal range of motion, no tenderness, supple, no stridor. Does indicate some discomfort to her right lateral neck, worse when she moves her head to the left, or when she raises her right shoulder.[] Cardiovascular:Heart rate regular rhythm, no murmur [] Lungs & Thorax: Bilateral breath sounds clear to auscultation [] Abdomen: Bowel sounds normal, soft, no tenderness, no masses, no pulsatile m asses. [] Skin: Warm, dry, no erythema, no rash. [] Back: No tenderness, no CVA tenderness. [] Extremities: No tenderness, no cyanosis, no clubbing, ROM intact, no edema. [] Neurologic: Alert and oriented X 3, normal motor function, normal sensory function, no focal deficits noted. [] Psychologic: Affect normal, judgement normal, mood normal. [] EKG EKG [] Radiology/Procedures Radiology/Procedures [] Course & Med Decision Making Course & Med Decision Making Pertinent Labs and Imaging studies reviewed. (See chart for details) [Discussed no acute findings on ear exam, or neurological exam today. Discussed tympanic membrane being clear, without erythema, and no signs of infection. Discussed consideration to try using [id number]-[id number] decongestants as Claritin or Zyrtec to decrease some potential fluid behind her ear, patient says that she has not tried this before but it consider. Patient to continue to keep her follow-up in 3 weeks her ENT specialist, also to see her primary care physician if any other concerns.] Dragon Disclaimer Dragon Disclaimer This electronic medical record was generated, in whole or in part, using a voice recognition dictation system. Departure Departure Impression: Primary Impression: Otalgia of right ear Disposition: 01 HOME, SELF-CARE Condition: GOOD Referrals: JUD KAPOOR MD (PCP) Patient Instructions: Cetirizine tablets, Otalgia-Brief Additional Instructions: As we discussed, consider taking Claritin or Zyrtec, or the byji-ipw-[id number] eq uivalents once a day. Try this for 3-4 days to seem to have any improvement in her symptoms. Keep her appointment with her ENT that she have scheduled in 3 weeks. Follow-up with primary care provider further concerns or questions. You can take her pain medicines you have a clear Excedrin with her Zyrtec or Claritin. TERESA CERDA APRN Jan 10, 2019 15:40
== END 2019-01-10 15:59 | disposition home or self-care (01) ==
LOC: ER 14:30
DX: H92.01 Otalgia, right ear (principal); M19.90 Unspecified osteoarthritis, unspecified site; I10 Essential (primary) hypertension; Z90.49 Acquired absence of other specified parts of digestive tract; Z90.710 Acquired absence of both cervix and uterus; G89.29 Other chronic pain; Z88.2 Allergy status to sulfonamides; Z88.5 Allergy status to narcotic agent
CPT/HCPCS: 99281

== ENCOUNTER → 2019-02-04 | Outpatient (CLI) | payer BC ==
[2019-01-10 15:30] VITALS: BP 132/90
[~2019-02-04] MED LIST changes: +GADOTERATE 7.5 MMOL/15ML VIAL. IVP ONE
--- NOTE | 2019-02-04 12:35 | KCIC ---
EXAMINATION: Magnetic resonance imaging (MRI) of the brain and brainstem without and with contrast HISTORY: Asymmetric right-sided hearing loss TECHNIQUE: Multiplanar multi-weighted MRI of the brain and brainstem was performed without and with intravenous contrast using the internal auditory canal protocol. This included sequences detailing the internal auditory canals and posterior fossa Contrast information: 15 mL Gadolinium based contrast COMPARISON: MRI brain 10/10/2014 FINDINGS: The cerebellopontine angles are normal, with no evidence of extra-axial mass or aneurysm. The VII/VIII nerve complexes appear normal. There are no areas of abnormal contrast enhancement. The upper cervical spinal cord and spine are normal. The scalp and calvarium are normal. The superior sagittal sinus demonstrates normal venous flow. The corpus callosum is normal in shape and signal intensity. The posterior fossa is unremarkable. The pituitary and sella are normal. The brainstem and craniocervical junction are unremarkable. There are T2/FLAIR signal hyperintense foci in the periventricular and subcortical white matter most suggestive of mild chronic small vessel ischemic changes. Diffusion weighted images reveal no hyperintensities to suggest acute cerebral infarction. The susceptibility weighted sequences reveal no evidence of acute or chronic hemorrhage. The ventricles are normal in size and position without evidence of hydrocephalus. The paranasal sinuses are normal. The visualized portions of the mastoids are unremarkable. The orbits appear normal with exception of right lens replacement. Normal flow voids are demonstrated in the carotid arteries and basilar artery. The bulbous appearance of the basilar tip measuring 5 mm. Further evaluation with CT of the head may be of benefit. IMPRESSION: No lesions in the posterior fossa, internal auditory canals, or temporal bones to explain the patient's hearing loss. Bolus contour of the basilar tip measuring 5 mm. Recommend further evaluation with CTA of the head. No evidence for acute or subacute ischemia. There are T2/FLAIR signal hyperintense foci in the periventricular and subcortical white matter most suggestive of mild chronic small vessel ischemic changes. Electronically signed by: Maribel García MD (02/04/2019 12:32 PM) [id number]
== END | disposition home or self-care (01) ==
LOC: KCIC MRI 09:53
PROVIDERS: ATTEND Otolaryngology
DX: H90.5 Unspecified sensorineural hearing loss (principal)
CPT/HCPCS: 70553; 82565; A9575

== ENCOUNTER → 2019-02-16 | Outpatient (CLI) | payer BC ==
[~2019-02-16] MED LIST changes: -GADOTERATE 7.5 MMOL/15ML VIAL. IVP ONE; +IOHEXOL 300 MG/ML 100ML VIAL. IV ONE
--- NOTE | 2019-02-16 17:09 | KCIC ---
CT ANGIOGRAPHY HEAD History: Possible aneurysm on the prior MRI brain. Hearing loss right ear. Disequilibrium Technique: After bolus of intravenous contrast, volumetric CT data acquisition was acquired of the head. Multiplanar reconstruction images to include MIP and 3-D reconstruction images are submitted. Exposure: One or more of the following individualized dose reduction techniques were utilized for this examination: 1. Automated exposure control 2. Adjustment of the mA and/or kV according to patient size 3. Use of iterative reconstruction technique. Contrast: 95 mL Omnipaque 300 IV contrast. Comparison: MRI February 04, 2019. Any determination of stenosis is based on NASCET criteria. Imaged orbits are unremarkable. Imaged paranasal sinuses and mastoid air cells are clear. Head CTA: ICA: No stenosis, occlusion or aneurysm. MCA: No stenosis, occlusion or aneurysm. MARY LOU: No stenosis, occlusion or aneurysm. BRICK LAYER: No stenosis, occlusion or aneurysm. Patent bilateral posterior communicating arteries. Basilar artery: Bulbous appearance of the basilar tip without focal aneurysm. No stenosis or occlusion. Distal vertebral arteries: No stenosis, occlusion or aneurysm. Impression: 1. Bulbous appearance of the basilar tip without focal aneurysm. Electronically signed by: Cooper Butler DO (02/16/2019 5:06 PM) [email or web address]
== END | disposition home or self-care (01) ==
LOC: KCIC CT 09:38
PROVIDERS: ATTEND Otolaryngology
DX: R93.0 Abnormal findings on diagnostic imaging of skull and head, not elsewhere classified (principal); H91.91 Unspecified hearing loss, right ear; I10 Essential (primary) hypertension
CPT/HCPCS: 70496; Q9967

== ENCOUNTER → 2019-12-02 | Outpatient (CLI) | payer MEDICARE ==
[~2019-12-02] MED LIST changes: -IOHEXOL 300 MG/ML 100ML VIAL. IV ONE; +MULT-445 PO; -MULT1TAB52 PO
--- NOTE | 2019-12-02 18:02 | KCIC ---
Bilateral digital screening mammograms with 3-D tomosynthesis: Reason for examination: Routine screening. Comparison is made to previous studies dated back to 09/21/2015. Bilateral mammograms in CC and oblique projections were obtained with 2-D imaging and 3-D tomosynthesis imaging on a Siemens Inspiration unit and reviewed on the workstation. Interpretation was made with the benefit of CAD. The skin and nipples show no abnormalities. No abnormal axillary lymph nodes are seen. The breast parenchyma shows scattered fatty and fibroglandular density. (Breast density: Category B.) There continues to be a small nodular density in the 3:00 position anteriorly in the right breast which is stable. There are no new dominant masses, suspicious calcifications or architectural distortion. Benign calcifications are present. Impression: No evidence of malignancy. Recommend routine screening. BI-RAD Category 2: Benign. "Our facility is accredited by the [employer] Mammography Program." This patient's information has been entered into a reminder system for the patient to be notified with the results of her examination and a target date for the next mammogram. Electronically signed by: Denise Camp MD (12/02/2019 5:59 PM) [email or web address]
== END | disposition home or self-care (01) ==
LOC: KCIC MAMMO 09:29
PROVIDERS: ATTEND Family Medicine
DX: Z12.31 Encounter for screening mammogram for malignant neoplasm of breast (principal)
CPT/HCPCS: 77063; 77067

== ENCOUNTER → 2020-12-12 | Outpatient (CLI) | payer MEDICARE ==
--- NOTE | 2020-12-12 16:54 | KCIC ---
Bilateral digital screening mammograms with 3-D tomosynthesis: Reason for examination: Routine screening. Comparison is made to previous studies dated back to 2014. Bilateral mammograms in CC and oblique projections were obtained with 2-D imaging and 3-D tomosynthes is imaging on a Siemens Inspiration unit and reviewed on the workstation. Interpretation was made wit h the benefit of CAD. The skin and nipples show no abnormalities. No abnormal axillary lymph nodes are seen. The breast par enchyma shows scattered fatty and fibroglandular density. (Breast density: Category B.) There continu e to be small nodular parenchymal densities at the anterior 3:00 position of the right breast central ly and in the 6:00 B position of the left breast which are stable. There are no new dominant masses, suspicious calcifications or architectural distortion. Benign calcifications are present. Impression: No evidence of malignancy. Recommend routine screening. BI-RAD Category 2: Benign. "Our facility is accredited by the [employer] Mammography [employer]." This patient's information has been entered into a reminder system for the patient to be notified wit h the results of her examination and a target date for the next mammogram. Electronically signed by: Denise Camp MD (12/12/2020 4:51 PM) [id number]
== END ==
LOC: KCIC MAMMO 08:47
PROVIDERS: ATTEND Family Medicine
DX: Z12.31 Encounter for screening mammogram for malignant neoplasm of breast (principal)
CPT/HCPCS: 77063; 77067